=== PATIENT | male | born 1960 | race African-American/Black ===

== ENCOUNTER 2021-09-09 09:31 | Emergency (ER) | payer BC ==
[~2021-09-09] VITALS: Ht 182.9 cm; Wt 95.3 kg
[2021-09-09 10:46] LABS: ABSOLUTE NEUTROPHILS 1.9 thou/uL (1.4-8.2); BASOPHILS 1.2 % (0.0-2.0); EOSINOPHILS 2.6 % (0.0-3.0); HEMATOCRIT 38.7 % (42.0-52.0); HEMOGLOBIN 12.7 gm/dL (14.0-18.0); LYMPHOCYTES 35.7 % (24.0-44.0); MCH 32.3 pg (26.0-34.0); MCHC 32.7 g/dL (28.0-37.0); MCV 98.6 fL (80.0-100.0); PLATELET COUNT 134 thou/uL (150-400); POLYS 49.5 % (36.0-66.0); RBC 3.93 mil/uL (4.50-6.00); RDW 13.9 % (10.5-14.5); WBC 3.8 thou/uL (4.0-11.0)
[2021-09-09 10:55] LABS: CALCIUM 8.6 mg/dL (8.5-10.1); POTASSIUM 3.8 mmol/L (3.5-5.1)
[2021-09-09 11:40] VITALS: BP 115/73
== END 2021-09-09 11:40 | disposition home or self-care (01) ==
LOC: ER 09:31
PROVIDERS: Student in an Organized Health Care Education/Training Program
DX: K59.00 Constipation, unspecified (principal); K64.9 Unspecified hemorrhoids; Z88.8 Allergy status to other drugs, medicaments and biological substances

== ENCOUNTER 2021-09-25 22:32 | Emergency (ER) | payer BC ==
[~2021-09-25] VITALS: Ht 182.9 cm; Wt 93.0 kg
[2021-09-25 22:34] VITALS: BP 122/79
[2021-09-25] MEDS ORDERED: AZITHROMYCIN 2250 MG PO (23:21)
== END 2021-09-25 23:57 | disposition home or self-care (01) ==
LOC: ER 22:32
DX: J40 Bronchitis, not specified as acute or chronic (principal); Z20.822 Contact with and (suspected) exposure to COVID-19; F17.200 Nicotine dependence, unspecified, uncomplicated; Z91.09 Other allergy status, other than to drugs and biological substances